=== PATIENT | male | born 1980 | race Caucasian/White ===

== ENCOUNTER 2019-10-23 15:10 | Emergency (ER) | payer OTHER ==
[~2019-10-23] VITALS: Ht 185.4 cm; Wt 108.9 kg
[2019-10-23] MEDS ORDERED: LEXAPRO20 MG PO (15:25)
[2019-10-23] MEDS ORDERED: KEFLEX500 MG PO (16:25)
== END 2019-10-23 16:38 | disposition home or self-care (01) ==
LOC: ED 15:10
DX: S61.012A Laceration without foreign body of left thumb without damage to nail, initial encounter (principal); W26.0XXA Contact with knife, initial encounter
CPT/HCPCS: 12002; 99282-25